=== PATIENT | male | born 1995 | race Caucasian/White ===

== ENCOUNTER 2024-01-29 13:01 | Emergency (ER) | payer OTHER ==
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
[2024-01-29 13:51] VITALS: BP 147/91; O2SAT 98
--- NOTE | 2024-01-29 14:32 | XRAY Report ---
PROCEDURE: Wrist 3+V LT INDICATIONS: left wrist TECHNIQUE: 4 views of the wrist were acquired. COMPARISON: None. FINDINGS: Bones: Mildly displaced transverse scaphoid waist fracture. Mineralization is normal. Bone alignment is otherwise normal. No suspicious bone lesions. Soft tissues: No suspicious soft tissue calcifications or masses. IMPRESSION: Mildly displaced transverse scaphoid waist fracture. Reviewed by: Caitlin Kaplan MD on 01/29/2024 2:31 PM PDT Approved by: Caitlin Kaplan MD on 01/29/2024 2:31 PM PDT Station ID: [id number]
== END 2024-01-29 13:51 | disposition home or self-care (01) ==
LOC: ED 13:01
DX: S92.255A Nondisplaced fracture of navicular [scaphoid] of left foot, initial encounter for closed fracture (principal); V23.49XA Other motorcycle driver injured in collision with car, pick-up truck or van in traffic accident, initial encounter; Y92.410 Unspecified street and highway as the place of occurrence of the external cause
CPT/HCPCS: 29125; 99283

== ENCOUNTER 2024-01-30 14:36 | Emergency (ER) | payer OTHER ==
[2024-01-30 14:55] VITALS: BP 155/96; O2SAT 99
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
[2024-01-30] MEDS: oxyCODONE 5 MG TABLET PO STA (18:50)
== END 2024-01-30 18:54 | disposition home or self-care (01) ==
LOC: ED 14:36
DX: M25.532 Pain in left wrist (principal); M54.2 Cervicalgia; M79.602 Pain in left arm; V29.99XA Rider (driver) (passenger) of other motorcycle injured in unspecified traffic accident, initial encounter; Y92.410 Unspecified street and highway as the place of occurrence of the external cause
CPT/HCPCS: 99283; 99284; A9270